=== PATIENT | female | born 1940 | race Caucasian/White ===

== ENCOUNTER → 2017-10-30 09:52 | Outpatient (CLI) | payer OTHER, SELFPAY ==
--- NOTE | 2017-10-30 | DI.RAD.S_ITS ---
This blank DEXA report has been sent in error by the PACS system. The correct and complete report will be forthcoming in 1-2 days. Thank you for your patience and understanding. Dictated by: Joie Ching MD, PhD on 10/30/2017 at 10:16 Approved by: Joie Ching MD, PhD on 10/30/2017 at 10:16
== END ==
PROVIDERS: PCP Physician Assistant; Visit Provider Physician Assistant
DX: M85.852 Other specified disorders of bone density and structure, left thigh (principal); Z78.0 Asymptomatic menopausal state
CPT/HCPCS: 77080

== ENCOUNTER → 2017-11-06 09:56 | Outpatient (CLI) | payer OTHER, SELFPAY ==
[2017-11-06 10:51] LABS: Add Manual Diff / Slide Review NO; Basophils Percent Auto 0.7 % (0-2); Eosinophils Percent Auto 2.7 % (2-4); Hematocrit 43.2 % (36-46); Hemoglobin 14.5 g/dL (12.0-16.0); Lymphocytes Percent Auto 28.6 % (25-40); Mean Corpuscular HGB Conc 33.6 % (30-36); Mean Corpuscular Hemoglobin 30.4 PG (26-34); Mean Corpuscular Volume 90.4 fL (80-100); Monocytes Percent Auto 9.4 % (3-14); Neutrophils Absolute Auto 3800 /uL (3000-5900); Neutrophils Percent Auto 58.6 % (50-75); Platelet Count 287 X10^3/uL (150-400); Red Blood Cell Count 4.78 X10^6/uL (4.0-5.2); Red Cell Distribution Width 14.8 % (11.6-14.8); White Blood Cell Count 6.5 X10^3/uL (4.5-11.0)
[2017-11-06 11:17] LABS: Alanine Aminotransferase 27 IU/L (9-52); Albumin 4.1 g/dL (3.5-5.0); Albumin Globulin Ratio 1.5 (1.0-2.8); Alkaline Phosphatase 64 U/L (38-126); Aspartate Aminotransferase 20 IU/L (14-36); BUN Creatinine Ratio 21.4 (6-22); Bilirubin Total 0.3 mg/dL (0.2-1.3); Blood Urea Nitrogen 15 mg/dL (7-17); Calcium 9.7 mg/dL (8.4-10.2); Carbon Dioxide 33 mmol/L (22-32); Chloride 99 mmol/L (98-107); Estimated Glomerular Filt Rate > 60.0 mL/min (>60); Globulin 2.8 g/dL (1.7-4.1); Glucose 84 mg/dL (80-110); HEMOLYSIS < 15 (0-50); Potassium 5.3 mmol/L (3.4-5.1); Sodium 140 mmol/L (137-145); Total Protein 6.9 g/dL (6.3-8.2)
--- NOTE | 2017-11-06 14:38 | DI.CT.S_ITS ---
PROCEDURE: CT ABDOMEN PELVIS W CON INDICATIONS: RIGHT LOWER ABDOMINAL PAIN TECHNIQUE: After the administration of oral and intravenous contrast, 5 mm thick sections acquired from the diaphragms to the symphysis. 5 mm thick coronal and sagittal reformats were performed. For radiation dose reduction, the following was used: automated exposure control, adjustment of mA and/or kV according to patient size. COMPARISON: None. FINDINGS: Image quality: Excellent. ABDOMEN: Lung bases: There is a 1 cm noncalcified nodule in the right lower lobe. Heart size is normal. A moderate-sized hiatal hernia is present. Solid organs: Liver is normal in size and enhancement. Gallbladder is normal. Biliary system is non-dilated. Pancreas enhances normally. Spleen is normal in size and enhancement. No adrenal nodules. Kidneys are normal in size and enhancement, without hydronephrosis. Peritoneum and bowel: Appendix is normal. There may be mild colonic wall thickening in distal sigmoid colon and rectum. Scattered colonic diverticula present. Stomach, small bowel and colon loops are normal in caliber. No free fluid or air. Nodes and vessels: No retroperitoneal or mesenteric adenopathy. Aorta and inferior vena cava are normal in caliber. Miscellaneous: Small paraumbilical hernia is present. PELVIS: Genitourinary: Bladder wall thickness is normal. There is absent. No adnexal mass. No pathological free fluid. Miscellaneous: No inguinal adenopathy. There is a fat-containing right internal hernia. Bones: No suspicious bony lesions. No vertebral body compression fractures. IMPRESSION: 1. Normal appendix. 2. Diverticulosis without acute diverticulitis. 3. ? Mild colonic and rectal thickening. Differential diagnoses include colitis versus artifact from lack of distention. Recommend clinical correlation. 4. Small fat-containing umbilical hernia. 5. Moderate-sized hiatal hernia. 6. Fat-containing right inguinal hernia. 7. A 1 cm noncalcified lung nodule in the right lower lobe. Please see enclosed followup recommendation. Fleischner Society criteria for SOLID lung nodule followup. Nodule size (mm)Low-risk patientHigh-risk patient?4No follow-up neededFollow-up at 12 mo; if no change, no further follow-up>[id number] CT at 12 mo; if no change, no further follow-up needed.Initial follow-up CT at 6-12 mo, then 18-24 mo if no change. >6-8Initial follow-up CT at 6-12 mo, then 18-24 mo if no change. Initial follow-up CT at 3-6 mo, then 9-12 mo and 24 mo if no change. >8Follow-up CT at 3, 9, 24 mo. Or PET and/or biopsy.Same as for low-risk pts. Dictated by: Rabia Melissa M.D. on 11/06/2017 at 16:04 Approved by: Rabia Melissa M.D. on 11/06/2017 at 16:21
== END ==
PROVIDERS: PCP Physician Assistant; Visit Provider Physician Assistant
DX: R10.31 Right lower quadrant pain (principal); K57.30 Diverticulosis of large intestine without perforation or abscess without bleeding; K42.9 Umbilical hernia without obstruction or gangrene; K40.90 Unilateral inguinal hernia, without obstruction or gangrene, not specified as recurrent; R91.1 Solitary pulmonary nodule
CPT/HCPCS: 36415; 74177; 80053; 85025; Q9967

== ENCOUNTER → 2018-01-01 08:16 | Outpatient (CLI) | payer OTHER, SELFPAY ==
--- NOTE | 2018-01-01 | DI.ECHO.S_ITS ---
[place] +---------+ [facility] +---------+ : : [address] : : : : [id number] : : : : Phone: [phone] Echocardiogram Report + + :Name: LIBRADO NICOLE Study Date: 01/01/2018 Height: 60 in : :[facility] Exam Location: IS Weight: 183 lb : : Gender: Female BSA: 1.8 m2 : :: 1940 Age: 77 yrs BP: 120/70 mmHg: :Reason For Study: LBBB : :Ordering Physician: TEOIFLO : :Susie Torres Performed By: Simi Danielle : :Referring: SUSIE TORERS : + + Interpretation Summary The left ventricle is normal in size. The ejection fraction is estimated to be 35-40%. Compared to the prior exam, the left ventricular function is improved. The right ventricle is normal in size and function. No significant valvular pathology seen. The IVC is of normal diameter and collapses greater than 50% with a sniff. This suggests a low right atrial pressure of 3 mm Hg. Procedure: A two-dimensional transthoracic echocardiogram with color flow and Doppler was performed. The study quality was technically adequate. Comparison is made with the echocardiogram of 01/01/16. The patient had a bundle branch block rhythm during the exam. The patient was in normal sinus rhythm during the exam. Left Ventricle: The left ventricle is normal in size. There is normal left ventricular wall thickness. There is no thrombus. The ejection fraction is estimated to be 35-40%. Compared to the prior exam, the left ventricular function is improved. Septal motion is consistent with conduction abnormality. Except posterior wall and the lateral wall which has relatively preserved contractility, rest of the LV segments are severely hypokinetic to akinetic. There is inferior wall akinesis. Compared to the prior exam, the posterior wall motion abnormality is improved. Diastolic parameters suggest a relaxation abnormality of the left ventricle, consistent with probable normal filling pressures. Right Ventricle: The right ventricle is normal in size and function. Atria: The left atrium is mildly dilated. The left atrium has mildly increased in size since the prior echo exam. Right atrial size is normal. There is no Doppler evidence for an interatrial shunt. Mitral Valve: The mitral valve leaflets appear mildly thickened, but open well. The mitral valve leaflets are slightly calcified. There is trace mitral regurgitation. Aortic Valve: The aortic valve is trileaflet. There is mild aortic valve sclerosis. The aortic valve opens well. There is no aortic valve stenosis. No aortic regurgitation is present. Tricuspid Valve: The tricuspid valve is normal. Pulmonary artery pressures cannot be estimated because of the lack of a measurable TR jet velocity. There is trace tricuspid regurgitation. Pulmonic Valve: The pulmonic valve is not well visualized. There is trace pulmonic regurgitation. Great Vessels: The aortic root is normal size. The ascending aorta is normal in size. The aortic arch is normal in size. The pulmonary is not well visualized. The IVC is of normal diameter and collapses greater than 50% with a sniff. This suggests a low right atrial pressure of 3 mm Hg. Pericardium/ Pleura There is no pericardial effusion. There is no pleural effusion. MMode/2D Measurements & Calculations LVIDd: 4.5 cm LVOT diam: 2.0 cm LVIDs: 3.5 cm Ao root diam: 2.9 cm FS: 22.0 % asc Aorta Diam: 3.0 cm EPSS: 1.5 cm Ao Arch Diam (Prox Trans): 2.4 cm IVSd: 0.92 cm LVPWd: 0.78 cm LV anderson. diameter/BSA (cm/m^2): 2.5 LV sys. diameter/BSA (cm/m^2): 2.0 LA A2 area: 21.5 cm2 RA long axis: 4.5 cm LA A4 area: 17.4 cm2 RA area: 13.4 cm2 LA length (vol): 5.0 cm RA vol: 33.5 ml LA vol: 63.3 ml RA : 18.6 ml/m2 LA vol index: 35.2 ml/m2 IVC diam: 1.6 cm RVD1 (basal): 2.8 cm RVD2 (mid): 2.0 cm TAPSE: 1.8 cm Doppler Measurements & Calculations Ao V2 max: 127.0 cm/sec LVOT Max Colby: 74.0 cm/sec Ao V2 mean: 86.5 cm/sec LV V1 max P.2 mmHg Ao max P.5 mmHg LV V1 VTI: 11.6 cm Ao mean P.4 mmHg DEBBIE(I,D): 1.6 cm2 Ao V2 VTI: 21.6 cm DEBBIE(V,D): 1.7 cm2 sev ratio: 0.54 DEBBIE indexed to BSA (cm^2/m^2): 0.90 MV E max colby: 37.7 cm/sec PA V2 max: 94.7 cm/sec MV A max colby: 90.7 cm/sec PA V2 mean: 58.7 cm/sec MV E/A: 0.42 PA mean P.6 mmHg Med Peak E' Colby: 6.9 cm/sec PA pr(Accel): 39.1 mmHg E/E' med: 5.5 Lat Peak E' Colby: 5.8 cm/sec E/E' lat: 6.6 E/e' average: 6.0 MV dec time: 0.28 sec MV P1/2t: 79.6 msec MV P1/2t max colby: 38.1 cm/sec MVA(P1/2t): 2.8 cm2 Reading Physician:SATINDER
== END ==
PROVIDERS: PCP Physician Assistant; Visit Provider Physician Assistant
DX: I44.7 Left bundle-branch block, unspecified (principal)
CPT/HCPCS: 93306

== ENCOUNTER → 2018-01-05 10:33 | Outpatient (CLI) | payer OTHER, SELFPAY ==
--- NOTE | 2018-01-05 | DI.CT.S_ITS ---
PROCEDURE: CT CHEST WO CON INDICATIONS: Solitary pulmonary nodule TECHNIQUE: Noncontrast 5 mm thick sections acquired from the pulmonary apices to the posterior costophrenic angles. 7 mm thick coronal and sagittal MIP reformats were then acquired. For radiation dose reduction, the following was used: automated exposure control, adjustment of mA and/or kV according to patient size. COMPARISON: [facility], CT, CT ABDOMEN PELVIS W CON, 11/06/2017, 15:18. [facility], CR, CHEST 2 VIEW, 12/17/2016, 9:53 FINDINGS: Image quality: Excellent Lungs and pleura: No acute consolidation. There is scattered subsegmental atelectasis and/or scarring Redemonstration of 1 cm subpleural right lower lobe pulmonary nodule is seen image 38 series 3. Overall appearance is grossly unchanged. This may be present on prior chest radiograph dated 12/17/16 although comparison is limited given differences in imaging modality. If there is sufficient clinical suspicion, PET CT could be considered versus continued CT surveillance described below. No pleural effusions or pneumothorax. Central and peripheral airways are patent and normal in caliber. Mediastinum: Heart size is normal. Coronary artery calcifications are present. No pericardial effusion. No mediastinal adenopathy by size criteria. Thoracic aorta and central pulmonary arteries are normal in size. Esophagus is normal in caliber. Moderate unchanged hiatal hernia. Bones and chest wall: No suspicious bony lesions. No vertebral body compression fractures. No axillary or supraclavicular adenopathy by size criteria. Thyroid gland unremarkable. Abdomen: Visualized upper abdominal solid organs and bowel loops appear normal in the absence of contrast. Possible duodenal diverticulum image 64 series 2, only partially visualized IMPRESSION: Unchanged appearance of right lower lobe pulmonary nodule as above, since 11/06/17. No further remote comparison CTs are available. Recommend further surveillance with repeat noncontrast chest CT in July 2018. Coronary artery disease. Moderate hiatal hernia. Dictated by: Daniel Vazquez M.D. on 01/05/2018 at 12:08 Approved by: Daniel Vazquez M.D. on 01/05/2018 at 12:15
== END ==
PROVIDERS: PCP Physician Assistant; Visit Provider Physician Assistant
DX: R91.1 Solitary pulmonary nodule (principal); I25.10 Atherosclerotic heart disease of native coronary artery without angina pectoris; K44.9 Diaphragmatic hernia without obstruction or gangrene
CPT/HCPCS: 71250

== ENCOUNTER → 2018-12-28 14:05 | Outpatient (CLI) | payer OTHER, SELFPAY ==
--- NOTE | 2018-12-28 14:34 | DI.CT.S_ITS ---
PROCEDURE: CT CHEST WO CON INDICATIONS: Solitary pulmonary nodule TECHNIQUE: Noncontrast 2.0-2.5 mm thick sections acquired from the pulmonary apices to the posterior costophrenic angles. 7 mm thick axial MIP and 5 mm coronal and sagittal reformats were then acquired. A low radiation dose technique was utilized. COMPARISON: [facility], CT, CT CHEST WO CON, 01/05/2018, 10:33. FINDINGS: Image quality: Diagnostic, given the low radiation dose technique. Lungs and pleura: There is biapical scarring. Previously described 1 cm subpleural right lower lobe pulmonary nodule is unchanged in size and appearance series 3 image 174. No new pulmonary nodule or mass is seen. No pleural effusion or pneumothorax. Central and peripheral airways patent. Scarring/atelectasis in the anterolateral aspect of right middle lobe is again seen, unchanged from prior study. Central and peripheral airway is patent and is normal in size. Mediastinum: Heart size is normal. No pericardial effusion. Left chest wall pacemaker leads are seen in the region of right atrium, right ventricle and left ventricle. No mediastinal adenopathy by size criteria. Thoracic aorta and central pulmonary arteries are normal in size. Esophagus is normal in caliber. There is a small to moderate-sized hiatal hernia. Bones and chest wall: There is interval development of anterior wedge compression deformity at T11 level with up to 20% loss of T11 body height anteriorly. Degenerative disc disease throughout mid to lower thoracic spine is seen. No axillary or supraclavicular adenopathy by size criteria. Thyroid gland is within normal limits.. Abdomen: Visualized upper abdomen solid organs and bowel loops appear normal in the absence of contrast. IMPRESSION: 1. Stable 1 cm right lower lobe subpleural nodule unchanged in size and appearance from previous study. 2. No new pulmonary nodular mass is seen. Stable scarring/atelectasis in the anterolateral aspect of right middle lobe. Stable bibasilar atelectasis. 3. Interval development of age indeterminant anterior wedge compression deformity of T11 with up to 20% loss of T11 vertebral body height anteriorly. 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 4. Interval placement of a left chest wall pacemaker as above. Fleischner Society criteria for SOLID lung nodule followup. Nodule size (mm)Low-risk patientHigh-risk patient<6 (single or multiple)No routine followup.Optional CT at 12 months. 6-8 (single or multiple)CT at 6-12 months, then optional CT at 18-24 mo.CT at 6-12 months, then CT at 18-24 months. >8 (single)CT at 3 months, PET-CT, or biopsy. Same as for low-risk pts. >8 (multiple)CT at 3-6 months, then optional CT at 18-24 mo.CT at 3-6 months, then CT at 18-24 months. Fleischner Society criteria for SUB-SOLID lung nodule followup. Solitary pure ground-glass nodules<6 mm (ground glass or part solid)No followup needed. 6 mm or larger (ground glass)CT at 6-12 months to confirm persistence, then CT every 2 years until 5 years.6 mm or larger (part solid)CT at 3-6 months to confirm persistence, then annual CT until 5 years if unchanged and solid component remains <6 mm. Multiple sub-solid nodules<6 mmCT at 3-6 months, then CT consider at 2 & 4 years for high risk patients. [address] at 3-6 months. Subsequent management based on most suspicious lesions. Recommendations do not apply to lung cancer screening, patients with immunosuppression, or patients with known primary cancer. Dictated by: Arpan Oro M.D. on 12/28/2018 at 16:59 Approved by: Arpan Oro M.D. on 12/28/2018 at 17:06
== END ==
PROVIDERS: PCP Internal Medicine; Visit Provider Internal Medicine
DX: R91.1 Solitary pulmonary nodule (principal); J98.11 Atelectasis; M51.36 Other intervertebral disc degeneration, lumbar region; M51.34 Other intervertebral disc degeneration, thoracic region; K44.9 Diaphragmatic hernia without obstruction or gangrene; Z95.0 Presence of cardiac pacemaker
CPT/HCPCS: 71250

== ENCOUNTER → 2019-07-22 13:48 | Outpatient (CLI) | payer OTHER, SELFPAY ==
--- NOTE | 2019-07-22 | DI.RAD.S_ITS ---
PROCEDURE: XR ANKLE LT MIN 3V INDICATIONS: pain in left ankle TECHNIQUE: 3 views of the ankle were acquired. COMPARISON: [facility], CR, XR FOOT LT MIN 3V, 07/22/2019, 13:47. FINDINGS: Bones: No fractures or dislocations. Ankle mortise is normally aligned. No suspicious bony lesions. The talar dome demonstrates no pawan abnormality. Age-appropriate bony degenerative changes are seen. Soft tissues: Soft tissue swelling is seen, which is most prominent laterally. IMPRESSION: Soft tissue swelling is seen, without an acute abnormality seen by plain film. If there is point tenderness (or other clinical suspicion for a fracture not seen on these images) then a dedicated CT for a short-term followup plain film series could be considered for further evaluation, as clinically appropriate. Dictated by: Keon Calabrese M.D. on 07/22/2019 at 13:30 Approved by: Keon Calabrese M.D. on 07/22/2019 at 13:31
--- NOTE | 2019-07-22 | DI.RAD.S_ITS ---
PROCEDURE: XR FOOT LT MIN 3V INDICATIONS: pain left foot TECHNIQUE: 3 views of the foot were acquired. COMPARISON: [facility], CR, XR ANKLE LT MIN 3V, 07/22/2019, 13:47. [facility], RG, XR FOOT 3V LEFT, 08/04/2001, 13:23. FINDINGS: Bones: No fractures or dislocations. No suspicious bony lesions. Age-appropriate osteopenia bony degenerative changes are seen. Soft tissues: No tibiotalar joint effusion. Achilles tendon appears normal. IMPRESSION: Unremarkable foot plain films for age, with osteopenia and degenerative changes noted. Dictated by: Keon Calabrese M.D. on 07/22/2019 at 13:29 Approved by: Keon Calabrese M.D. on 07/22/2019 at 13:30
== END ==
PROVIDERS: PCP Internal Medicine; Referring Provider Internal Medicine; Visit Provider Internal Medicine
DX: M79.89 Other specified soft tissue disorders (principal); M25.572 Pain in left ankle and joints of left foot; M85.872 Other specified disorders of bone density and structure, left ankle and foot
CPT/HCPCS: 73610; 73630

== ENCOUNTER → 2019-12-15 10:10 | Outpatient (CLI) | payer OTHER, SELFPAY ==
--- NOTE | 2019-12-15 | DI.MG.S_ITS ---
BILATERAL DIGITAL SCREENING MAMMOGRAM 3D/2D WITH CAD: 12/15/2019 CLINICAL: Routine screening. Comparison is made to exams dated: 11/19/2016 mammogram, 01/19/2013 mammogram, and 09/15/2007 mammogram - [facility]. The tissue of both breasts is predominantly fatty. Current study was also evaluated with a Computer Aided Detection (CAD) system. No significant masses, calcifications, or other findings are seen in either breast. There has been no significant interval change. IMPRESSION: NEGATIVE There is no mammographic evidence of malignancy. A 1 year screening mammogram is recommended. This exam was interpreted at Station ID: [id number]. NOTE: For mammograms, a report in lay terms will be sent to the patient. Approximately 15% of breast malignancies will not be visualized mammographically. In the management of a palpable breast mass, a negative mammogram must not discourage biopsy of a clinically suspicious lesion. Electronically Signed By: Ramakrishna Hong M.D., jr/afia:12/15/2019 10:54:11 letter sent: Normal Exam ACR BI-RADS Category 1: Negative 3341F
--- NOTE | 2019-12-15 10:46 | DI.CT.S_ITS ---
PROCEDURE: CT CHEST WO CON INDICATIONS: OSTEOPENIA SCREENING COUGH TECHNIQUE: Noncontrast 5 mm thick sections acquired from the pulmonary apices to the posterior costophrenic angles. 1 mm lung window, 5 mm thick coronal and sagittal and 7 mm axial MIP reformats were then acquired. For radiation dose reduction, the following was used: automated exposure control, adjustment of mA and/or kV according to patient size. COMPARISON: [facility], CR, CHEST 2 VIEW, 12/17/2016, 9:53. [facility], CT, CT ABDOMEN PELVIS W CON, 11/06/2017, 15:18. [facility], CT, CT CHEST WO CON, 12/28/2018, 14:15. [facility], CT, CT CHEST WO CON, 01/05/2018, 10:33. FINDINGS: Image quality: Excellent. Lungs and pleura: No acute air space opacities. An ovoid 9 x 11 mm sharply demarcated pleural based nodule at the right lower lobe has been previously identified and stable over time from initial CT scanning when it was identified 11/06/17. No pleural effusions or pneumothorax. Central and peripheral airways are patent and normal in caliber. Mediastinum: Heart size is normal. No pericardial effusion. No mediastinal adenopathy by size criteria. Thoracic aorta and central pulmonary arteries are normal in size. Esophagus is normal in caliber. Small to moderate-sized hiatal hernia. Cardiac pacemaking device and dual chamber leads in normal position. Bones and chest wall: No suspicious bony lesions. No vertebral body compression fractures. No axillary or supraclavicular adenopathy by size criteria. Thyroid gland appears normal . Abdomen: Visualized upper abdominal solid organs and bowel loops appear normal in the absence of contrast. IMPRESSION: A source of new cough is not identified. Note is again made of a longstanding ovoid 9 x 11 mm peripheral right lower lobe pulmonary nodule having been initially identified on CT abdomen/pelvis 11/06/17. No new nodule is found. Small to moderate-sized hiatal hernia behind the heart. This also has been previously present. Dictated by: Ruben Rogers M.D. on 12/15/2019 at 11:49 Approved by: Ruben Rogers M.D. on 12/15/2019 at 11:55
== END ==
PROVIDERS: PCP Internal Medicine; Referring Provider Internal Medicine; Visit Provider Internal Medicine
DX: Z12.31 Encounter for screening mammogram for malignant neoplasm of breast (principal); Z13.820 Encounter for screening for osteoporosis; Z78.0 Asymptomatic menopausal state; R05 Cough; R91.1 Solitary pulmonary nodule; K44.9 Diaphragmatic hernia without obstruction or gangrene
CPT/HCPCS: 71250; 77063; 77067; 77080

== ENCOUNTER → 2020-02-24 18:48 | Outpatient (ROUT) | payer OTHER, SELFPAY ==
[2020-02-24 19:07] LABS: BUN Creatinine Ratio 20.4 (6-22); Blood Urea Nitrogen 11 mg/dL (7-17); Calcium 9.2 mg/dL (8.4-10.2); Carbon Dioxide 32 mmol/L (22-32); Chloride 101 mmol/L (98-107); Estimated Glomerular Filt Rate > 60.0 mL/min (>60); Glucose 93 mg/dL (80-110); HEMOLYSIS 18 (0-50); Sodium 137 mmol/L (137-145)
== END ==
PROVIDERS: PCP Internal Medicine; Visit Provider Internal Medicine
DX: I10 Essential (primary) hypertension (principal)
CPT/HCPCS: 80048

== ENCOUNTER → 2020-07-27 15:10 | Outpatient (CLI) | payer OTHER, SELFPAY ==
--- NOTE | 2020-07-27 | DI.RAD.S_ITS ---
PROCEDURE: XR FOOT LT MIN 3V INDICATIONS: Left Foot Pain TECHNIQUE: 3 views of the foot were acquired. COMPARISON: [facility], , XR FOOT LT MIN 3V, 07/22/2019, 13:47. FINDINGS: Bones: No fractures or dislocations. No suspicious bony lesions. Soft tissues: No tibiotalar joint effusion. Achilles tendon appears normal. IMPRESSION: Source of asymmetric left-sided foot pain is not found. Dictated by: Ruben Rogers M.D. on 07/27/2020 at 17:09 Approved by: Ruben Rogers M.D. on 07/27/2020 at 17:09
== END ==
PROVIDERS: PCP Internal Medicine; Referring Provider Internal Medicine; Visit Provider Internal Medicine
DX: M79.672 Pain in left foot (principal)
CPT/HCPCS: 73630

== ENCOUNTER → 2020-12-17 16:16 | Outpatient (CLI) | payer OTHER, SELFPAY ==
--- NOTE | 2020-12-17 | DI.MG.S_ITS ---
BILATERAL DIGITAL SCREENING MAMMOGRAM 3D/2D WITH CAD: 12/17/2020 CLINICAL: Routine screening. Comparison is made to exams dated: 12/15/2019 mammogram and 11/19/2016 mammogram - [facility]. The tissue of both breasts is predominantly fatty. Current study was also evaluated with a Computer Aided Detection (CAD) system. No significant masses, calcifications, or other findings are seen in either breast. There has been no significant interval change. IMPRESSION: NEGATIVE There is no mammographic evidence of malignancy. A 1 year screening mammogram is recommended. This exam was interpreted at Station ID: [id number]. NOTE: For mammograms, a report in lay terms will be sent to the patient. Approximately 15% of breast malignancies will not be visualized mammographically. In the management of a palpable breast mass, a negative mammogram must not discourage biopsy of a clinically suspicious lesion. Electronically Signed By: Raffy melendrez/afia:12/18/2020 08:23:12 letter sent: Normal Exam ACR BI-RADS Category 1: Negative 3341F
== END ==
PROVIDERS: PCP Internal Medicine; Referring Provider Internal Medicine; Visit Provider Internal Medicine
DX: Z12.31 Encounter for screening mammogram for malignant neoplasm of breast (principal)
CPT/HCPCS: 77063; 77067

== ENCOUNTER → 2022-01-30 13:56 | Outpatient (CLI) | payer OTHER, SELFPAY ==
--- NOTE | 2022-01-30 13:59 | DI.MG.S_ITS ---
BILATERAL DIGITAL SCREENING MAMMOGRAM 3D/2D WITH CAD: 01/30/2022 CLINICAL: Routine screening. Comparison is made to exams dated: 12/17/2020 mammogram, 12/15/2019 mammogram, and 11/19/2016 mammogram - [facility]. There are scattered areas of fibroglandular density in both breasts (category b / 25%-50% glandular tissue). Current study was also evaluated with a Computer Aided Detection (CAD) system. No significant masses, calcifications, or other findings are seen in either breast. There has been no significant interval change. IMPRESSION: NEGATIVE There is no mammographic evidence of malignancy. A 1 year screening mammogram is recommended. Based on the Tyrer Cuzick model (a risk assessment model) the patient's lifetime risk is 1.4% and her 10 year risk is 0.0%. According to the ACR, ACS, and NCCN guidelines, an annual breast MRI exam along with mammogram is recommended if the patient's lifetime risk is 20% or greater. This exam was interpreted at Station ID: [id number]. NOTE: For mammograms, a report in lay terms will be sent to the patient. Approximately 15% of breast malignancies will not be visualized mammographically. In the management of a palpable breast mass, a negative mammogram must not discourage biopsy of a clinically suspicious lesion. Electronically Signed By: Ramakrishna Hong M.D., jr/afia:01/30/2022 18:24:27 letter sent: Normal Exam ACR BI-RADS Category 1: Negative 3341F
== END ==
PROVIDERS: PCP Internal Medicine; Referring Provider Internal Medicine; Visit Provider Internal Medicine
DX: Z12.31 Encounter for screening mammogram for malignant neoplasm of breast (principal)
CPT/HCPCS: 77063; 77067

== ENCOUNTER 2022-07-27 09:20 | Emergency (ER) | payer OTHER, SELFPAY ==
[2022-07-27 09:25] VITALS: BP 105/52; PULSE 99; RESP 18; TEMP 36.2; O2SAT 94; BMI 31.2
[2022-07-27 10:13] VITALS: BP 149/73
[2022-07-27 10:14] VITALS: PULSE 96; O2SAT 95
[2022-07-27 10:30] VITALS: PULSE 95; O2SAT 96
--- NOTE | 2022-07-27 10:37 | PC.NURSE ---
Patient has been having pain since fall in [place]. Has known compression fractures. Has been taking tylenol with no relief. Patient denies any difficulty with urination. Does report decrease appetite and changes in bowels, has had some constipation over the last month but reports some diarrhea last night.
--- NOTE | 2022-07-27 10:43 | ED.RECABL ---
HPI - Recheck/Abnormal Lab/Rx General Chief Complaint: Recheck/Abnormal Lab/Rx Stated Complaint: fell a month ago, compr discs, extre pain, abd karen Time Seen by Provider: 07/27/22 10:10 Source: patient and family Mode of arrival: Wheelchair History of Present Illness HPI narrative: Patient is an 82-year-old female. Approximately 1 month ago was in [place] where she fell. She did injure her lower back. Did see a doctor in [place]. Had x-rays and an MRI. Was told that she is compression fractures of her lumbar spine and also fractured her coccyx. Was on meloxicam and muscle relaxer. She is since stopped the meloxicam because it was causing her GI upset. She is also stop the muscle relaxer because it was causing her some memory issues. She is not followed up with her primary doctor although she has an appointment the middle of next month. She is here because she is having quite a bit of lower back discomfort. Related Data Home Medications Medication Instructions Recorded Confirmed ascorbic acid (vitamin C) 500 mg mg PO 11/06/17 11/18/17 capsule cholecalciferol (vitamin D3) 50 2,000 unit PO DAILY 11/06/17 11/18/17 mcg (2,000 unit) capsule citalopram 10 mg tablet 10 mg PO DAILY 11/06/17 11/18/17 omeprazole 20 mg capsule,delayed 20 mg PO DAILY 11/06/17 11/18/17 release vit C 150 mg-vit E 30 unit-lutein 1 cap PO DAILY 11/06/17 11/18/17 5 it-qiaprfiv-jvpvj 3 150 mg capsule (Ocuvite) vitamin B complex (B 1 tab PO DAILY 11/06/17 11/18/17 Complex-Vitamin B12 tablet) vitamin E 200 unit capsule 200 unit PO DAILY 11/06/17 11/06/17 Previous Rx's Medication Instructions Recorded hydrocodone 5 mg-acetaminophen 325 1 tab PO Q4-6H PRN pain #20 tabs 07/27/22 mg tablet Allergies Allergy/AdvReac Type Severity Reaction Status Date / Time No Known Drug Allergies Allergy Verified 07/27/22 09:34 Review of Systems Gastrointestinal Gastrointestinal: Reports system reviewed and no additional complaints, except as documented Genitourinary Genitourinary: Reports system reviewed and no additional complaints, except as documented Musculoskeletal Musculoskeletal: Reports system reviewed and no additional complaints, except as documented Integumentary/Breasts Skin/Breast: Reports system reviewed and no additional complaints, except as documented Neurologic Neurologic: Reports system reviewed and no additional complaints, except as documented Patient History Medical History Asthma Bundle branch block, left Essential tremor History of [place] (myocardial infarction) Hyperlipidemia Idiopathic cardiomyopathy Obesity determined by physical examination Right inguinal hernia Sleep apnea in adult Umbilical hernia without mention of obstruction or gangrene Surgical History (Updated 11/18/17 @ 19:06 by Andrea Santiago MD) H/O hysterectomy with unilateral oophorectomy History of prolapse of bladder History of tonsillectomy Status post colonoscopy Family History Mother Heart disease Father Heart disease Social History household members: significant other Smoking Status: Never smoker alcohol intake: current substance use type: does not use Smoking Status: Never smoker alcohol intake frequency: 0-2 drinks per day Substance Use Type: does not use Exam Initial Vital Signs Initial Vital Signs: Vital Signs Temperature 97.1 F L 07/27/22 09:25 Pulse Rate 99 H 07/27/22 09:25 Respiratory Rate 18 07/27/22 09:25 Blood Pressure 105/52 L 07/27/22 09:25 Pulse Oximetry 94 07/27/22 09:25 Oxygen Delivery Method Room Air 07/27/22 09:25 Const General: cooperative, comfortable and No ill appearing HENMT Head: normal to inspection and normocephalic Resp Effort & Inspection: normal respiratory effort Cardio Rate: regular rate Neuro General: patient alert, patient awake and moves all extremities Course Vital Signs Vital signs: Vital Signs - 8 hr 07/27/22 09:25 07/27/22 10:13 07/27/22 10:14 Temperature 97.1 F L Pulse Rate 99 H 96 H Respiratory Rate 18 Blood Pressure 105/52 L 149/73 H Pulse Oximetry 94 95 Oxygen Delivery Method Room Air 07/27/22 10:30 Temperature Pulse Rate 95 H Respiratory Rate Blood Pressure Pulse Oximetry 96 Oxygen Delivery Method MDM - Recheck/Abnormal Lab/Rx MDM Narrative Medical decision making narrative: No further workup needed in the emergency department. No repeat x-rays needed. Will provide pain control until she can follow-up with her primary doctor. She was also given a referral for her to contact the orthopedic surgeons. Will discharge patient home. Discharge Plan Departure Patient Disposition: Home Clinical Impression: Compression fracture of lumbar vertebra Instructions: Vertebral Compression Fracture Activity Restrictions/Additional Instructions: A prescription for pain medication was sent to [facility] per your request. This medication does contain Tylenol/acetaminophen. Use it as needed specifically at night to help sleep. You can use regular Tylenol during the day. I recommend that you contact your primary doctor for follow-up. You can also contact the orthopedic surgeon at the number provided below for a follow-up as well. Prescriptions: New hydrocodone-acetaminophen 5-325 mg tablet 1 tab PO Q4-6H PRN (Reason: pain) Qty: 20 0RF No Action vitamin E 200 unit capsule 200 unit PO DAILY citalopram 10 mg tablet 10 mg PO DAILY omeprazole 20 mg capsule,delayed release(DR/EC) 20 mg PO DAILY vitamin B complex [B Complex-Vitamin B12] tablet 1 tab PO DAILY vit C-vit S-qyeiyz-pxk-om-3 [Ocuvite] 300-79-1-150 xo-jflk-ai-mg capsule 1 cap PO DAILY cholecalciferol (vitamin D3) 2,000 unit capsule 2,000 unit PO DAILY ascorbic acid (vitamin C) 500 mg capsule PO Referrals: Hanh Pittman MD [Physician] - Leena Dee MD [Primary Care Provider] - Stand Alone Forms: Patient Portal/API
== END 2022-07-27 10:59 | disposition home or self-care (01) ==
PROVIDERS: Emergency Provider Emergency Medicine; PCP Internal Medicine
DX: S32.009D Unspecified fracture of unspecified lumbar vertebra, subsequent encounter for fracture with routine healing (principal); W19.XXXD Unspecified fall, subsequent encounter
CPT/HCPCS: 99281

== ENCOUNTER → 2023-07-29 14:28 | Outpatient (CLI) | payer OTHER, SELFPAY ==
--- NOTE | 2023-07-29 14:30 | DI.MG.S_ITS ---
BILATERAL DIGITAL SCREENING MAMMOGRAM 3D/2D WITH CAD: 07/29/2023 CLINICAL: Routine screening. Comparison is made to exams dated: 01/30/2022 mammogram, 12/17/2020 mammogram, and 12/15/2019 mammogram - [facility]. There are scattered areas of fibroglandular density in both breasts (category b / 25%-50% glandular tissue). Current study was also evaluated with a Computer Aided Detection (CAD) system. There are benign calcifications in both breasts. No significant masses, calcifications, or other findings are seen in either breast. There has been no significant interval change. IMPRESSION: BENIGN There is no mammographic evidence of malignancy. A 1 year screening mammogram is recommended. Based on the Tyrer Cuzick model (a risk assessment model) the patient's lifetime risk is 0.5% and her 10 year risk is 0.0%. According to the ACR, ACS, and NCCN guidelines, an annual breast MRI exam along with mammogram is recommended if the patient's lifetime risk is 20% or greater. This exam was interpreted at Station ID: [id number]. NOTE: For mammograms, a report in lay terms will be sent to the patient. Approximately 15% of breast malignancies will not be visualized mammographically. In the management of a palpable breast mass, a negative mammogram must not discourage biopsy of a clinically suspicious lesion. Electronically Signed By: Kristina smith/afia:07/29/2023 15:12:53 letter sent: Normal Exam ACR BI-RADS Category 2: Benign Finding(s) 3342F
== END ==
PROVIDERS: PCP Internal Medicine; Referring Provider Internal Medicine; Visit Provider Internal Medicine
DX: Z12.31 Encounter for screening mammogram for malignant neoplasm of breast (principal); R92.323 Mammographic fibroglandular density, bilateral breasts
CPT/HCPCS: 77063; 77067

== ENCOUNTER 2023-08-11 18:51 | Emergency (ER) | payer OTHER, SELFPAY ==
[2023-08-11] VITALS (15 sets, daily range): BP systolic 129–190; BP diastolic 60–110; PULSE 66–84; RESP 13–23; TEMP 36.8; O2SAT 92–98; BMI 31.3
--- NOTE | 2023-08-11 19:19 | ED_ITS ---
HPI - General Adult General Chief complaint: Dizziness Stated complaint: difficulty breathing, dizzy, AMS Time Seen by Provider: 08/11/23 19:19 Source: patient Mode of arrival: Ambulatory History of Present Illness HPI narrative: 83-year-old woman with a history of osteoporosis, reflux, history of DC with pacemaker for idiopathic cardiomyopathy, presents today complaining of episodes of increasing weakness and confusion. She has had a cough for the last week or so without reported fevers. Yesterday afternoon had an episode that lasted about 4 hours where she felt weak, confused, unsteady gait. Symptoms resolved completely and she had a good night sleep. Was feeling that she was improving from her recent upper respiratory infection this morning and played [place] with her friends, went out to lunch, went to a gym class and then have another episode of the acute weakness, confusion, unsteady gait. She has not describing any fevers. She and her are both significantly concerned with the altered mental status. She has not describing localizing neurologic symptoms, no nausea, vomiting, diarrhea, abdominal pain. No palpitations. Her cough that has been present over the last at least week is not getting worse and is not productive, she has not complaining of lower extremity edema. There is no headache. Related Data Home Medications Medication Instructions Recorded Confirmed ascorbic acid (vitamin C) 500 mg mg PO 11/06/17 07/16/23 capsule cholecalciferol (vitamin D3) 50 2,000 unit PO DAILY 11/06/17 07/16/23 mcg (2,000 unit) capsule citalopram 10 mg tablet 10 mg PO DAILY 11/06/17 07/16/23 omeprazole 20 mg capsule,delayed 20 mg PO DAILY 11/06/17 07/16/23 release vit C 150 mg-vit E 30 unit-lutein 1 cap PO DAILY 11/06/17 07/16/23 5 hi-vvrtdmck-fdzic 3 150 mg capsule (Ocuvite) vitamin B complex (B 1 tab PO DAILY 11/06/17 07/16/23 Complex-Vitamin B12 tablet) vitamin E 200 unit capsule 200 unit PO DAILY 11/06/17 07/16/23 Previous Rx's Medication Instructions Recorded hydrocodone 5 mg-acetaminophen 325 1 tab PO Q4-6H PRN pain #20 tabs 07/27/22 mg tablet Allergies Allergy/AdvReac Type Severity Reaction Status Date / Time No Known Drug Allergies Allergy Verified 07/16/23 16:33 Review of Systems Review of Systems Narrative: Pertinent positive and negative findings as per HPI Patient History Medical History Asthma Bundle branch block, left Essential tremor History of DC (myocardial infarction) Hyperlipidemia Idiopathic cardiomyopathy Obesity determined by physical examination Right inguinal hernia Sleep apnea in adult Umbilical hernia without mention of obstruction or gangrene Surgical History (Updated 11/18/17 @ 19:06 by Andrea Santiago MD) History of prolapse of bladder H/O hysterectomy with unilateral oophorectomy Status post colonoscopy History of tonsillectomy Family History Mother Heart disease Father Heart disease Social History household members: significant other Smoking Status: Never smoker alcohol intake: current substance use type: does not use Smoking Status: Never smoker alcohol intake frequency: 0-2 drinks per day Substance Use Type: does not use Exam Initial Vital Signs Initial Vital Signs: Vital Signs Pulse Rate 80 08/11/23 19:01 Blood Pressure 175/79 H 08/11/23 19:01 Pulse Oximetry 97 08/11/23 19:01 General: Healthy appearing, in no acute distress. Well-nourished well- developed HEENT: Moist mucous membranes, normal sclera with reactive pupils, Neck: No JVD, supple Respiratory: Lungs are clear to auscultation, no wheezing no rales no rhonchi. Full and symmetrical air movement Cardiac: Regular rate and rhythm no murmurs no bruits Abdomen: Soft, nontender, good bowel tones, no flank pain Skin: Warm and dry, no rashes Neurologic: Grossly neurologically intact with no obvious asymmetries or abnormalities Extremities: No trauma, well perfused, no lower extremity edema Psych: Cooperative, mild cognitive slowing, allows her to answer the majority of questions clearly recognizes that she is confused. Course Orders Ordered: ED Orders 08/11/23 19:11 EKG-12 Lead Stat 08/11/23 19:31 CT head/brain wo con Stat XR chest 1V Stat 08/11/23 19:37 Complete Blood Count AUTO DIFF Stat Comprehensive Metabolic Panel Stat Lactate (Lactic Acid) Stat PTT Partial Thromboplastin Mehran Stat Procalcitonin Stat Prothrombin Time INR Stat Thyroid Stimulating Hormone Stat Troponin & CK Cardiac Panel Stat 08/11/23 20:08 Ammonia (NH3) Stat 08/11/23 20:22 Blood Culture Stat Vital Signs Vital signs: Vital Signs - 8 hr 08/11/23 19:01 08/11/23 19:01 08/11/23 19:05 Temperature 98.2 F Pulse Rate 80 84 Respiratory Rate 18 Blood Pressure 175/79 H 175/79 H Pulse Oximetry 97 98 Oxygen Delivery Method Room Air 08/11/23 19:30 08/11/23 19:31 08/11/23 19:31 Temperature Pulse Rate 74 74 Respiratory Rate 20 22 Blood Pressure 158/69 H Pulse Oximetry 97 95 Oxygen Delivery Method 08/11/23 19:59 08/11/23 19:59 08/11/23 20:00 Temperature Pulse Rate 71 Respiratory Rate 23 Blood Pressure 137/72 135/68 Pulse Oximetry 93 Oxygen Delivery Method 08/11/23 20:00 08/11/23 20:30 08/11/23 20:30 Temperature Pulse Rate 71 69 Respiratory Rate 20 15 Blood Pressure 130/63 Pulse Oximetry 93 92 Oxygen Delivery Method Room Air 08/11/23 20:56 08/11/23 20:56 08/11/23 21:00 Temperature Pulse Rate 73 Respiratory Rate 21 Blood Pressure 146/70 H 147/70 H Pulse Oximetry 96 Oxygen Delivery Method 08/11/23 21:00 08/11/23 21:30 08/11/23 21:31 Temperature Pulse Rate 66 68 Respiratory Rate 19 13 Blood Pressure 129/60 Pulse Oximetry 98 95 Oxygen Delivery Method 08/11/23 21:31 08/11/23 22:00 08/11/23 22:01 Temperature Pulse Rate 68 80 Respiratory Rate 13 16 Blood Pressure 190/110 H Pulse Oximetry 96 97 Oxygen Delivery Method 08/11/23 22:01 08/11/23 22:02 08/11/23 22:02 Temperature Pulse Rate 80 76 Respiratory Rate 16 17 Blood Pressure 175/88 H Pulse Oximetry 98 98 Oxygen Delivery Method 08/11/23 22:08 Temperature Pulse Rate Respiratory Rate Blood Pressure 173/76 H Pulse Oximetry Oxygen Delivery Method Medical Decision Making Lab Data 08/11/23 19:37 08/11/23 19:37 Labs: Lab Results 08/11/23 08/11/23 Range/Units 19:37 20:08 WBC 5.9 (4.5-11.0) X10^3/uL RBC 3.73 L (4.0-5.2) X10^6/uL Hgb 12.1 (12.0-16.0) g/dL Hct 36.1 (36-46) % MCV 96.8 (80-100) fL MCH 32.4 (26-34) PG MCHC 33.4 (30-36) % RDW 13.0 (11.6-14.8) % Plt Count 200 (150-400) X10^3/uL Neut % (Auto) 46.8 L (50-75) % Lymph % (Auto) 34.3 (25-40) % [place] % (Auto) 9.0 (3-14) % Eos % (Auto) 8.7 H (2-4) % Baso % (Auto) 1.2 (0-2) % Neut # (Auto) 2800 (8446-0859) /uL Lymph # (Auto) 2000 (5457-4766) /uL [place] # (Auto) 500 (0-900) /uL Eos # (Auto) 500 H (0-450) /uL Baso # (Auto) 100 (0-100) /uL PT 10.9 (9.4-12.5) SECONDS INR 1.0 (0.9-1.3) APTT 34 (25.1-36.5) SECONDS Sodium 136 L (137-145) mmol/L Potassium 4.7 (3.4-5.1) mmol/L Chloride 104 (98-107) mmol/L Carbon Dioxide 28 (22-32) mmol/L BUN 23 H (7-17) mg/dL Creatinine 0.76 (0.52-1.04) mg/dL Estimated GFR > 60 (>60) mL/min BUN/Creatinine Ratio 30.3 H (6-22) Glucose 107 (80-110) mg/dL Lactate 1.4 (0.7-2.1) mmol/L Calcium 9.1 (8.4-10.2) mg/dL Total Bilirubin 0.3 (0.2-1.3) mg/dL AST 22 (14-36) IU/L ALT 23 (<35) IU/L Alkaline Phosphatase 81 (38-126) U/L Ammonia < 9 L (9-30) umol/L Total Creatine Kinase 39 (30-135) U/L Troponin I < 0.012 (0.01-0.034) ng/mL Total Protein 6.8 (6.3-8.2) g/dL Albumin 4.2 (3.5-5.0) g/dL Globulin 2.6 (1.7-4.1) g/dL Albumin/Globulin Ratio 1.6 (1.0-2.8) Procalcitonin 0.04 (<0.5) ng/mL TSH 0.491 (0.47-4.68) uIU/mL Urine Dip Bedside Urine Glucose Negative Bedside Urine Bilirubin - Negative Bedside Urine Ketone - Negative Urine Specific [place] 1.015 Bedside Urine Occult Blood - Negative Bedside Urine pH 6 Bedside Urine Protein - Negative Bedside Urine Urobilinogen - Negative Bedside Urine Nitrite - Negative Bedside Urine Leukocytes - Negative Esterase Point of care testing: Urine Dip Bedside Urine Glucose Negative Bedside Urine Bilirubin - Negative Bedside Urine Ketone - Negative Urine Specific [place] 1.015 Bedside Urine Occult Blood - Negative Bedside Urine pH 6 Bedside Urine Protein - Negative Bedside Urine Urobilinogen - Negative Bedside Urine Nitrite - Negative Bedside Urine Leukocytes - Negative Esterase MDM Narrative Medical decision making narrative: CC: Confusion with weakness. Complicating co-morbidities: Similar episode lasting 4-5 hours yesterday afternoon, resolving upper respiratory infection, coronary artery disease pacemaker in place Data collected from: patient, Medical records reviewed: Primary care and urgent care notes reviewed Differential considered: Viral syndrome, viral cardiomyopathy, global amnesia, brain tumor, doubt stroke doubt meningitis doubt sepsis, pneumonia Exam documented above, pertinent findings include: Exam other than the mild confusion is otherwise entirely benign without any localizing symptoms. Nonfocal neurologic exam Lab Test results independently reviewed as above. Pertinent findings: CBC is unremarkable with no leukocytosis and no anemia Chemistries are reassuring. Ammonia levels appropriate Troponin is undetectable Remainder of labs are reassuring Procalcitonin is not elevated to suggest infection TSH is not elevated Independently reviewed EKG: Atrial paced. No other abnormalities appreciated Imaging studies independently reviewed: Chest x-ray shows no significant pathology. No pulmonary infiltrate Head CT shows no significant abnormalities Discussion: Patient continues to state that she feels like she is ?high?. Did clearly review that she did not have an edible by surprised today. Her lab work, chest x-ray, CT scan are all unremarkable. Patient continues to appear entirely nontoxic. There was no sign of infection, sepsis, acute coronary syndrome, stroke, electrolyte abnormality or alternate explanation that would require additional imaging or hospitalization at this time. All of this is reviewed with the patient and her . Questions are answered and they are discharged home Discharge Plan Departure Patient Disposition: Home Clinical Impression: Acute alteration in mental status, Acute upper respiratory infection Instructions: DI for Altered Mental Status Activity Restrictions/Additional Instructions: Thank you for coming in tonight Aside from the resolving upper respiratory viral infection, I am not finding anything wrong with the workup that we did today. There was no evidence of bacterial infection or sepsis, no electrolyte abnormalities, no kidney or liver problems. Your brain CT and x-ray of your chest are very reassuring. I am not suspecting stroke or stroke-like symptom at this time. I do not have a complete explanation for the ?high? sensation that you are experiencing but at this point I am not finding anything that appears life- threatening or would require hospitalization. If you find that you are getting worse or develop any new symptoms, please feel free to return to the emergency department for further evaluation. Prescriptions: No Action vitamin E 200 unit capsule 200 unit PO DAILY citalopram 10 mg tablet 10 mg PO DAILY omeprazole 20 mg capsule,delayed release(DR/EC) 20 mg PO DAILY vitamin B complex [B Complex-Vitamin B12] tablet 1 tab PO DAILY vit C-vit I-wyokug-qee-om-3 [Ocuvite] 193-33-7-150 wf-nlya-nu-mg capsule 1 cap PO DAILY cholecalciferol (vitamin D3) 2,000 unit capsule 2,000 unit PO DAILY ascorbic acid (vitamin C) 500 mg capsule PO hydrocodone-acetaminophen 5-325 mg tablet 1 tab PO Q4-6H PRN (Reason: pain) Qty: 20 0RF Referrals: Leena Dee MD [Primary Care Provider] - Stand Alone Forms: Patient Portal/API
--- NOTE | 2023-08-11 19:31 | DI.CT.S_ITS ---
PROCEDURE: CT HEAD/BRAIN WO CON INDICATIONS: altered mental status TECHNIQUE: Noncontrast 4.5 mm thick angled axial sections acquired from the foramen magnum to the vertex, with coronal and sagittal reformats. For radiation dose reduction, the following was used: automated exposure control, adjustment of mA and/or kV according to patient size. COMPARISON: [facility], CT, HEAD WITHOUT CONTRAST, 01/07/2013, 7:58. FINDINGS: Image quality: Diagnostic. CSF spaces: Basal cisterns are patent. No extra-axial fluid collections. Ventricles are normal in size and shape. Brain: No midline shift. No intracranial masses or hemorrhage. No area of hypodensity in a large vascular distribution to suggest acute infarction. Periventricular hypodensity consistent with chronic microvascular ischemic change. Age-related parenchymal loss. Skull and face: Calvarium and visualized facial bones are intact, without suspicious lesions. Sinuses: Visualized sinuses and mastoids are clear. IMPRESSION: No acute intracranial pathology. Dictated by: Enrike Pleitez M.D. on 08/11/2023 at 20:05 Approved by: Enrike Pleitez M.D. on 08/11/2023 at 20:07
--- NOTE | 2023-08-11 19:31 | DI.RAD.S_ITS ---
PROCEDURE: XR CHEST 1V INDICATIONS: dyspnea TECHNIQUE: One view of the chest was acquired. COMPARISON: [facility], CR, XR THORACIC SPINE 2 VIEWS, 11/28/2022, 13:38. [facility], CR, CHEST 2 VIEW, 12/17/2016, 9:53. FINDINGS: Surgical changes and devices: Left pacemaker/AICD. Lungs and pleura: Lungs are clear. No pleural effusions or pneumothorax. Mediastinum: Mediastinal contours appear normal. Heart size is normal. Bones and chest wall: No suspicious bony lesions. Overlying soft tissues appear unremarkable. IMPRESSION: No acute cardiopulmonary abnormality is seen. Dictated by: Enrike Pleitez M.D. on 08/11/2023 at 20:01 Approved by: Enrike Pleitez M.D. on 08/11/2023 at 20:02
[2023-08-11 19:53] LABS: Add Manual Diff / Slide Review NO; Basophils Absolute Auto 100 /uL (0-100); Basophils Percent Auto 1.2 % (0-2); Eosinophils Absolute Auto 500 /uL (0-450); Eosinophils Percent Auto 8.7 % (2-4); Hematocrit 36.1 % (36-46); Hemoglobin 12.1 g/dL (12.0-16.0); Lymphocytes Absolute Auto 2000 /uL (1100-4500); Lymphocytes Percent Auto 34.3 % (25-40); Mean Corpuscular HGB Conc 33.4 % (30-36); Mean Corpuscular Hemoglobin 32.4 PG (26-34); Mean Corpuscular Volume 96.8 fL (80-100); Monocytes Absolute Auto 500 /uL (0-900); Neutrophils Absolute Auto 2800 /uL (1500-7000); Neutrophils Percent Auto 46.8 % (50-75); Platelet Count 200 X10^3/uL (150-400); Red Blood Cell Count 3.73 X10^6/uL (4.0-5.2); White Blood Cell Count 5.9 X10^3/uL (4.5-11.0)
[2023-08-11 19:55] LABS: Prothrombin Time 10.9 SECONDS (9.4-12.5)
[2023-08-11 19:58] LABS: PTT Partial Thromboplastin Tim 34 SECONDS (25.1-36.5)
[2023-08-11 20:02] LABS: Lactate (Lactic Acid) 1.4 mmol/L (0.7-2.1)
[2023-08-11 20:03] LABS: Alanine Aminotransferase 23 IU/L (<35); Albumin 4.2 g/dL (3.5-5.0); Albumin Globulin Ratio 1.6 (1.0-2.8); Alkaline Phosphatase 81 U/L (38-126); Aspartate Aminotransferase 22 IU/L (14-36); BUN Creatinine Ratio 30.3 (6-22); Bilirubin Total 0.3 mg/dL (0.2-1.3); Blood Urea Nitrogen 23 mg/dL (7-17); Calcium 9.1 mg/dL (8.4-10.2); Carbon Dioxide 28 mmol/L (22-32); Chloride 104 mmol/L (98-107); Creatine Kinase 39 U/L (30-135); Estimated Glomerular Filt Rate > 60 mL/min (>60); Globulin 2.6 g/dL (1.7-4.1); Glucose 107 mg/dL (80-110); HEMOLYSIS < 15 (0-50); Potassium 4.7 mmol/L (3.4-5.1); Sodium 136 mmol/L (137-145); Total Protein 6.8 g/dL (6.3-8.2)
[2023-08-11 20:14] LABS: Troponin I < 0.012 ng/mL (0.01-0.034)
[2023-08-11 20:19] LABS: Procalcitonin 0.04 ng/mL (<0.5)
[2023-08-11 20:22] LABS: Ammonia (NH3) < 9 umol/L (9-30)
[2023-08-11 20:33] LABS: Thyroid Stimulating Hormone 0.491 uIU/mL (0.47-4.68)
== END 2023-08-11 22:13 | disposition home or self-care (01) ==
PROVIDERS: Emergency Provider Emergency Medicine; PCP Internal Medicine
DX: R41.82 Altered mental status, unspecified (principal); J06.9 Acute upper respiratory infection, unspecified; R06.00 Dyspnea, unspecified
CPT/HCPCS: 36415; 70450; 71045; 80053; 81003; 82140; 82550; 83605; 84145; 84443; 84484; 85025; 85610; 85730; 87040; 93005; 93010; 99284

== ENCOUNTER → 2023-09-04 07:03 | Outpatient (CLI) | payer OTHER, SELFPAY ==
--- NOTE | 2023-09-04 07:03 | DI.US.S_ITS ---
PROCEDURE: US CAROTID DOPPLER BI INDICATIONS: TIA TECHNIQUE: Color and pulse Doppler interrogation was performed of both carotid systems, with image documentation and velocity measurements. COMPARISON: None. FINDINGS: Stenosis calculations are based on SRU (Society of Radiologists in Ultrasound) criteria. Right side: Brachial blood pressure: 126/60 mm Hg. Common carotid artery peak systolic velocity: 66 cm/sec. Internal carotid artery peak systolic velocity: 79 cm/sec. Internal carotid artery end diastolic velocity: 29 cm/sec. External carotid artery peak systolic velocity: 79 cm/sec. ICA/CCA peak systolic ratio: 1.2 . Magallon scale imaging description: Mild atherosclerotic plaque Percent internal carotid artery stenosis: Less than 50 percent . Vertebral artery: Flow direction is antegrade. Left side: Brachial blood pressure: 134/64 mm Hg. Common carotid artery peak systolic velocity: 65 cm/sec. Internal carotid artery peak systolic velocity: 83 cm/sec. Internal carotid artery end diastolic velocity: 31 cm/sec. External carotid artery peak systolic velocity: 50 cm/sec. ICA/CCA peak systolic ratio: 1.3 . Magallon scale imaging description: Mild atherosclerotic plaque. Percent internal carotid artery stenosis: Less than 50 percent . Vertebral artery: Flow direction is antegrade. IMPRESSION: Less than 50 percent stenosis of the internal carotid arteries. Dictated by: Salvatore Morocho M.D. on 09/04/2023 at 10:09 Approved by: Salvatore Morocho M.D. on 09/04/2023 at 10:11
== END ==
LOC: US 07:03
PROVIDERS: PCP Internal Medicine; Referring Provider Internal Medicine; Visit Provider Internal Medicine
DX: G45.9 Transient cerebral ischemic attack, unspecified (principal)
CPT/HCPCS: 93880

== ENCOUNTER → 2024-01-15 16:45 | Outpatient (CLI) | payer OTHER, SELFPAY | PROVIDERS: Family Provider Internal Medicine; PCP Internal Medicine; Visit Provider Nurse Practitioner Family | DX: N90.89 Other specified noninflammatory disorders of vulva and perineum (principal) | CPT/HCPCS: 87210 ==

== ENCOUNTER → 2024-10-28 13:38 | Outpatient (CLI) | payer OTHER, SELFPAY ==
--- NOTE | 2024-10-28 13:39 | DI.MG.S_ITS ---
MM screening mammo BI: 10/28/2024. BI-RADS: 2 CLINICAL: 84-year old female for bilateral screening mammogram. Tyrer-Cuzick lifetime risk of 0.4%. No personal or first-degree family history of breast cancer. PRIOR EXAMS 07/29/2023, 01/30/2022, 12/17/2020, 12/15/2019. MAMMOGRAPHY TECHNIQUE: 2D and 3D (tomosynthesis) digital mammographic views obtained, with additional images as needed for full coverage. Current study was also evaluated with a Computer Aided Detection (CAD) system. DENSITY B. There are scattered areas of fibroglandular density. MAMMOGRAPHY FINDINGS Left: An implanted medical billing manager obscures a portion of the breast/axilla. Bilateral: Benign-appearing calcifications noted. There are no suspicious masses, calcifications, or other findings in the breast. IMPRESSION: * No evidence of malignancy with benign findings. RECOMMENDATIONS Bilateral * Annual screening mammography. OVERALL ASSESSMENT CATEGORY BI-RADS-2: Benign. The [employer] recommends annual screening mammography beginning at age 40 for women with average risk of breast cancer. ELECTRONICALLY SIGNED: Maria Elena Tiwari M.D. on 10/28/2024 at 11:07:27 PM PT Interpreting Station ID: [id number]
== END ==
LOC: MAMMO 13:39
PROVIDERS: Family Provider Internal Medicine; PCP Internal Medicine; Referring Provider Internal Medicine; Visit Provider Internal Medicine
DX: Z12.31 Encounter for screening mammogram for malignant neoplasm of breast (principal)
CPT/HCPCS: 77063; 77067